=== PATIENT | female | born 1970 | race Caucasian/White ===

== ENCOUNTER 2019-12-17 15:48 | Outpatient (REF) | payer BC, SELFPAY ==
--- NOTE | 2019-12-17 15:00 | PAPFT_PTH ---
PATIENT: Lexus Fajardo LOC: [facility] U#:[id number] AGE/SX: 49/F ROOM: RE12/17/[address]: DOMINIK Bird : 1970 BED: DIS: 12/17/2019 SPEC #: [id number] RECD: 12/17/19 16:47 STATUS: BEN REQ #: [id number] SULAIMAN: 12/17/19 15:[address]: Carie Loaiza DEPT: [facility] Cytology RECD BY: Alison Man ENTERED: 12/17/19 16:47 SP TYPE: PAPFT OTHR DR: Ines Gtz Tissues: 1 - CX/ENDOCX FOR PAP SMEARS Procedures: PAP THIN PREP/[facility] Screening HPV DNA PROBE Comments: [id number]
== END 2019-12-17 16:08 ==
LOC: LBN 15:48
PROVIDERS: PCP Physician Assistant Medical; Visit Provider Nurse Practitioner Family
DX: Z12.4 Encounter for screening for malignant neoplasm of cervix (principal); Z11.51 Encounter for screening for human papillomavirus (HPV)
CPT/HCPCS: 88142; 87624

== ENCOUNTER 2019-12-21 02:06 | Outpatient (CLI) | payer BC, SELFPAY ==
--- NOTE | 2019-12-21 08:15 | DI.MAMMO_ITS ---
EXAM: MG MAMMO SCREENING 60 MIN DUR CLINICAL HISTORY: breast cancer screening,IMPLANTS,Z12.39 TECHNIQUE: Bilateral full field digital CC and MLO mammographic images were obtained with 3D tomosyn thesis and utilizing computer aided detection (CAD). COMPARISON: Available for comparison. FINDINGS: Since the prior examination the patient has had bilateral breast implants. The implants are unremark able. Masses/Architectural Distortion: There is a stable nodule at the 12 o'clock position of the right marcelo ast. No suspicious nodules are seen. Microcalcifications: No suspicious pleomorphic-type are seen. Skin Thickening/Nipple Retraction: None. IMPRESSION: 1. No significant interval change with no specific features of malignancy noted. 2. Unless there is more urgent need, screening mammography is recommended, as per [employer] guidelines. BI-RADS Category 2 - Benign Findings Breast Density - Category B - Scattered areas of fibroglandular density A negative radiographic report should not delay biopsy if a dominant or clinically suspicious mass is present. Up to ten percent of cancers are not identified on mammography. A negative report may reinforce clinical impression. Adenosis and dense breasts may obscure an underlying neoplasm. False positive reports average 6 to 10%. Patient will receive a letter notifying them of these results.
== END 2019-12-21 02:26 ==
PROVIDERS: PCP Physician Assistant Medical; Visit Provider Nurse Practitioner Family
DX: Z12.31 Encounter for screening mammogram for malignant neoplasm of breast (principal)
CPT/HCPCS: 77063; 77067